=== PATIENT | female | born 1935 | race Caucasian/White ===

== ENCOUNTER 2017-11-11 15:33 | Inpatient (IN) | payer MEDICARE, MEDICAID ==
[~2017-11-11] VITALS: Ht 167.6 cm; Wt 85.4 kg
--- NOTE | 2017-11-11 15:48 | Emergency Room Report ---
History of Present Illness General Chief Complaint: Dyspnea/Respdistress Source: Patient, EMS Present Illness HPI 82-year-old female, history of CHF, A fibrillation, has a pacemaker, COPD, presenting from home with shortness of breath sob at rest and on exertion no cp, abd pain, nvd pt given 2 nitro by EMS and feels better Allergies: Coded Allergies: No Known Allergies (Verified , 12/03/08) Patient History Past Medical History: see triage record Past Surgical History: none Pertinent Family History: none Reviewed Nursing Documentation: PMH: Agreed, PSxH: Agreed Nursing Documentation-PMH Past Medical History: No History, Except For Hx Cardiac Problems: Yes - chf Hx Hypertension: Yes Hx Pacemaker: Yes Review of Systems All Other Systems: negative except mentioned in HPI Physical Exam Vital Signs Date Time Temp Pulse Resp B/P (MAP) Pulse Ox O2 Delivery O2 Flow Rate FiO2 11/11/17 15:29 94 20 176/70 100 Non-Rebreather 10.0 Sp02 EP Interpretation: reviewed, normal General Appearance: normal inspection, well appearing, no apparent distress, alert, GCS 15, non-toxic Head: normocephalic, atraumatic Eyes: bilateral eye normal inspection, bilateral eye PERRL, bilateral eye EOMI ENT: normal ENT inspection, normal pharynx, normal voice, moist mucus membranes Neck: normal inspection, full range of motion, supple Respiratory: respiratory distress, crackles, speaking full sentences Cardiovascular #1: other - PPM noted. , edema Cardiovascular #2: 2+ radial (R), 2+ radial (L) Gastrointestinal: normal inspection, non tender, soft, non-distended, no guarding Musculoskeletal: normal inspection, back normal, normal range of motion, non- tender Neurologic: normal inspection, alert, oriented x3, responsive, motor strength/ tone normal, sensory intact, speech normal Psychiatric: normal inspection, judgement/insight normal, memory normal Skin: normal inspection, normal color, no rash, warm/dry, well hydrated, normal turgor Medical Decision Making Diagnostic Impression: Primary Impression: Respiratory distress Additional Impression: CHF exacerbation ER Course 82-year-old female p/w SOB for 1 days. 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, O2 nasal cannula obtain basic labs including blood gas, troponin, BNP Nitro, lasix, Will consider BIPAP for persistent or worsening respiratory status Anticipate admission ER course: Patient hypoxic on room air, some mild respiratory distress, however still been able to converse with daughter at bedside 40 mg Lasix given Troponin elevated at likely secondary to CHF, patient not having any chest pain Disposition: Patient to be admitted to Tele D/w hospitalist Dr Shearer Please note that this Emergency Department Report was dictated using [employer] sales manager technology software, occasionally this can lead to erroneous entry secondary to interpretation by the dictation equipment. EKG Diagnostic Results EP Interpretation: Yes Rate: normal Rhythm: Paced rhythm ST Segments: Wide QRS, no sgarbossa criteria fulfilled ASA given to patient: no Rhythm Strip EP Interpretation: Yes Rate:70 Rhythm: Paced rhythm Chest X-ray CXR: Ordered: Yes 1 view Indication: SOB EP interpretation: Yes Interpretation: chf Impression: CHF Electronically signed by Merritt Dominguez MD Laboratory Tests Test 11/11/17 15:56 11/11/17 16:48 White Blood Count 8.1 K/UL (4.8-10.8) Red Blood Count 3.01 M/UL (4.20-5.40) L Hemoglobin 10.2 G/DL (12.0-16.0) L Hematocrit 28.8 % (37.0-47.0) L Mean Corpuscular Volume 96 FL (80-99) Mean Corpuscular Hemoglobin 33.8 PG (27.0-31.0) H Mean Corpuscular Hemoglobin Concent 35.3 G/DL (32.0-36.0) Red Cell Distribution Width 14.0 % (11.6-14.8) Platelet Count 158 K/UL (150-450) Mean Platelet Volume 8.8 FL (6.5-10.1) Neutrophils (%) (Auto) 74.2 % (45.0-75.0) Lymphocytes (%) (Auto) 13.9 % (20.0-45.0) L Monocytes (%) (Auto) 9.8 % (1.0-10.0) Eosinophils (%) (Auto) 1.5 % (0.0-3.0) Basophils (%) (Auto) 0.8 % (0.0-2.0) Sodium Level 142 MMOL/L (136-145) Potassium Level 3.6 MMOL/L (3.5-5.1) Chloride Level 104 MMOL/L (98-107) Carbon Dioxide Level 31 MMOL/L (21-32) Anion Gap 8 mmol/L (5-15) Blood Urea Nitrogen 47 mg/dL (7-18) H Creatinine 1.7 MG/DL (0.55-1.30) H Estimate Glomerular Filtration Rate mL/min (>60) Glucose Level 211 MG/DL (74-106) H Calcium Level 9.2 MG/DL (8.5-10.1) Total Bilirubin 0.5 MG/DL (0.2-1.0) Aspartate Amino Transferase (AST) 13 U/L (15-37) L Alanine Aminotransferase (ALT) 18 U/L (12-78) Alkaline Phosphatase 104 U/L (46-116) Troponin I 0.286 ng/mL (0.000-0.056) Pro-B-Type Natriuretic Peptide 1099 pg/mL (0-125) H Total Protein 7.3 G/DL (6.4-8.2) Albumin 2.8 G/DL (3.4-5.0) L Globulin 4.5 g/dL Albumin/Globulin Ratio 0.6 (1.0-2.7) L Urine Color Pale yellow Urine Appearance Clear Urine pH 6 (4.5-8.0) Urine Specific [place] 1.010 (1.005-1.035) Urine Protein Negative (NEGATIVE) Urine Glucose (UA) Negative (NEGATIVE) Urine Ketones Negative (NEGATIVE) Urine Occult Blood Negative (NEGATIVE) Urine Nitrite Negative (NEGATIVE) Urine Bilirubin Negative (NEGATIVE) Urine Urobilinogen Normal MG/DL (0.0-1.0) Urine Leukocyte Esterase Negative (NEGATIVE) Last Vital Signs Date Time Temp Pulse Resp B/P (MAP) Pulse Ox O2 Delivery O2 Flow Rate FiO2 11/11/17 15:29 94 20 176/70 100 Non-Rebreather 10.0 Disposition: ADMITTED INPATIENT Condition: Merritt Mueller M.D. Nov 11, 2017 15:48
[2017-11-11 16:28] LABS: BASOPHILS % (AUTO) 0.8 % (0.0-2.0); EOSINOPHILS % (AUTO) 1.5 % (0.0-3.0); HEMATOCRIT 28.8 % (37.0-47.0); HEMOGLOBIN 10.2 G/DL (12.0-16.0); LYMPHOCYTES % (AUTO) 13.9 % (20.0-45.0); MEAN CORPUSCULAR VOLUME 96 FL (80-99); MONOCYTES % (AUTO) 9.8 % (1.0-10.0); NEUTROPHILS % (AUTO) 74.2 % (45.0-75.0); PLATELET COUNT 158 K/UL (150-450); RED BLOOD COUNT 3.01 M/UL (4.20-5.40); WHITE BLOOD COUNT 8.1 K/UL (4.8-10.8)
[2017-11-11 16:33] LABS: ANION GAP 8 mmol/L (5-15); BLOOD UREA NITROGEN 47 mg/dL (7-18); CALCIUM 9.2 MG/DL (8.5-10.1); CARBON DIOXIDE 31 MMOL/L (21-32); CHLORIDE 104 MMOL/L (98-107); CREATININE 1.7 MG/DL (0.55-1.30); POTASSIUM 3.6 MMOL/L (3.5-5.1); SODIUM 142 MMOL/L (136-145)
--- NOTE | 2017-11-11 16:41 | Diagnostic Imaging Report ---
Indication: Shortness of breath Technique: One view of the chest Comparison: 01/26/2011 Findings: There is a left chest bifocal pacemaker. The heart is enlarged. There is mild interstitial congestion. No focal airspace consolidation. No effusions Impression: Cardiomegaly. Mild interstitial edema
[2017-11-11 16:44] LABS: ALANINE AMINOTRANSFERASE 18 U/L (12-78); ALBUMIN 2.8 G/DL (3.4-5.0); ALBUMIN/GLOBULIN RATIO 0.6 (1.0-2.7); ALKALINE PHOSPHATASE 104 U/L (46-116); ASPARTATE AMINO TRANSFERASE 13 U/L (15-37); BILIRUBIN,TOTAL 0.5 MG/DL (0.2-1.0)
[2017-11-11 17:19] LABS: APPEARANCE,URINE CLEAR; BILIRUBIN, URINE NEGATIVE (NEGATIVE); COLOR,URINE PALE YELLOW; GLUCOSE, URINE (UA) NEGATIVE (NEGATIVE); KETONES,URINE NEGATIVE (NEGATIVE); LEUKOCYTE ESTERASE ,URINE NEGATIVE (NEGATIVE); NITRITE,URINE NEGATIVE (NEGATIVE); PH,URINE 6 (4.5-8.0); PROTEIN,URINE NEGATIVE (NEGATIVE); UROBILINOGEN,URINE NORMAL MG/DL (0.0-1.0)
--- NOTE | 2017-11-11 18:47 | Cardiology Progress Note ---
Subjective Subjective The patient is known to me with chf Objective Last 24 Hour Vital Signs Date Time Temp Pulse Resp B/P (MAP) Pulse Ox O2 Delivery O2 Flow Rate FiO2 11/11/17 16:00 94 20 Room Air 10.0 11/11/17 15:29 94 20 176/70 100 Non-Rebreather 10.0 Laboratory Tests Test 11/11/17 15:56 11/11/17 16:48 White Blood Count 8.1 K/UL (4.8-10.8) Red Blood Count 3.01 M/UL (4.20-5.40) L Hemoglobin 10.2 G/DL (12.0-16.0) L Hematocrit 28.8 % (37.0-47.0) L Mean Corpuscular Volume 96 FL (80-99) Mean Corpuscular Hemoglobin 33.8 PG (27.0-31.0) H Mean Corpuscular Hemoglobin Concent 35.3 G/DL (32.0-36.0) Red Cell Distribution Width 14.0 % (11.6-14.8) Platelet Count 158 K/UL (150-450) Mean Platelet Volume 8.8 FL (6.5-10.1) Neutrophils (%) (Auto) 74.2 % (45.0-75.0) Lymphocytes (%) (Auto) 13.9 % (20.0-45.0) L Monocytes (%) (Auto) 9.8 % (1.0-10.0) Eosinophils (%) (Auto) 1.5 % (0.0-3.0) Basophils (%) (Auto) 0.8 % (0.0-2.0) Sodium Level 142 MMOL/L (136-145) Potassium Level 3.6 MMOL/L (3.5-5.1) Chloride Level 104 MMOL/L (98-107) Carbon Dioxide Level 31 MMOL/L (21-32) Anion Gap 8 mmol/L (5-15) Blood Urea Nitrogen 47 mg/dL (7-18) H Creatinine 1.7 MG/DL (0.55-1.30) H Estimat Glomerular Filtration Rate mL/min (>60) Glucose Level 211 MG/DL (74-106) H Calcium Level 9.2 MG/DL (8.5-10.1) Total Bilirubin 0.5 MG/DL (0.2-1.0) Aspartate Amino Transf (AST/SGOT) 13 U/L (15-37) L Alanine Aminotransferase (ALT/SGPT) 18 U/L (12-78) Alkaline Phosphatase 104 U/L (46-116) Troponin I 0.286 ng/mL (0.000-0.056) Pro-B-Type Natriuretic Peptide 1099 pg/mL (0-125) H Total Protein 7.3 G/DL (6.4-8.2) Albumin 2.8 G/DL (3.4-5.0) L Globulin 4.5 g/dL Albumin/Globulin Ratio 0.6 (1.0-2.7) L Urine Color Pale yellow Urine Appearance Clear Urine pH 6 (4.5-8.0) Urine Specific [place] 1.010 (1.005-1.035) Urine Protein Negative (NEGATIVE) Urine Glucose (UA) Negative (NEGATIVE) Urine Ketones Negative (NEGATIVE) Urine Occult Blood Negative (NEGATIVE) Urine Nitrite Negative (NEGATIVE) Urine Bilirubin Negative (NEGATIVE) Urine Urobilinogen Normal MG/DL (0.0-1.0) Urine Leukocyte Esterase Negative (NEGATIVE) BRITTANY SEAY Nov 11, 2017 18:47
[2017-11-11 19:53] VITALS: BP 160/71
[2017-11-11 21:20] VITALS: BP 152/54
--- NOTE | 2017-11-11 21:54 | Cardiology Progress Note ---
Subjective Subjective [id number] Objective Last 24 Hour Vital Signs Date Time Temp Pulse Resp B/P (MAP) Pulse Ox O2 Delivery O2 Flow Rate FiO2 11/11/17 19:54 98.0 70 20 160/71 100 Nasal Cannula 4.0 98.0 11/11/17 19:53 98.0 70 20 160/71 100 Nasal Cannula 4.0 98.0 11/11/17 16:00 94 20 Room Air 10.0 11/11/17 15:29 94 20 176/70 100 Non-Rebreather 10.0 Laboratory Tests Test 11/11/17 15:56 11/11/17 16:48 11/11/17 21:33 White Blood Count 8.1 K/UL (4.8-10.8) Red Blood Count 3.01 M/UL (4.20-5.40) L Hemoglobin 10.2 G/DL (12.0-16.0) L Hematocrit 28.8 % (37.0-47.0) L Mean Corpuscular Volume 96 FL (80-99) Mean Corpuscular Hemoglobin 33.8 PG (27.0-31.0) H Mean Corpuscular Hemoglobin Concent 35.3 G/DL (32.0-36.0) Red Cell Distribution Width 14.0 % (11.6-14.8) Platelet Count 158 K/UL (150-450) Mean Platelet Volume 8.8 FL (6.5-10.1) Neutrophils (%) (Auto) 74.2 % (45.0-75.0) Lymphocytes (%) (Auto) 13.9 % (20.0-45.0) L Monocytes (%) (Auto) 9.8 % (1.0-10.0) Eosinophils (%) (Auto) 1.5 % (0.0-3.0) Basophils (%) (Auto) 0.8 % (0.0-2.0) Sodium Level 142 MMOL/L (136-145) Potassium Level 3.6 MMOL/L (3.5-5.1) Chloride Level 104 MMOL/L (98-107) Carbon Dioxide Level 31 MMOL/L (21-32) Anion Gap 8 mmol/L (5-15) Blood Urea Nitrogen 47 mg/dL (7-18) H Creatinine 1.7 MG/DL (0.55-1.30) H Estimat Glomerular Filtration Rate mL/min (>60) Glucose Level 211 MG/DL (74-106) H Calcium Level 9.2 MG/DL (8.5-10.1) Total Bilirubin 0.5 MG/DL (0.2-1.0) Aspartate Amino Transf (AST/SGOT) 13 U/L (15-37) L Alanine Aminotransferase (ALT/SGPT) 18 U/L (12-78) Alkaline Phosphatase 104 U/L (46-116) Troponin I 0.286 ng/mL (0.000-0.056) Pro-B-Type Natriuretic Peptide 1099 pg/mL (0-125) H Total Protein 7.3 G/DL (6.4-8.2) Albumin 2.8 G/DL (3.4-5.0) L Globulin 4.5 g/dL Albumin/Globulin Ratio 0.6 (1.0-2.7) L Urine Color Pale yellow Urine Appearance Clear Urine pH 6 (4.5-8.0) Urine Specific [place] 1.010 (1.005-1.035) Urine Protein Negative (NEGATIVE) Urine Glucose (UA) Negative (NEGATIVE) Urine Ketones Negative (NEGATIVE) Urine Occult Blood Negative (NEGATIVE) Urine Nitrite Negative (NEGATIVE) Urine Bilirubin Negative (NEGATIVE) Urine Urobilinogen Normal MG/DL (0.0-1.0) Urine Leukocyte Esterase Negative (NEGATIVE) Prothrombin Time Pending Prothromb Time International Ratio Pending BRITTANY SEAY Nov 11, 2017 21:54
[2017-11-11] MEDS ORDERED: Warfarin Sodium 2.5mg ORAL SCH (23:00)
--- NOTE | 2017-11-11 23:00 | History and Physical Report ---
DATE OF ADMISSION: 11/11/2017 IDENTIFICATION: This is an 82-year-old female. REASON FOR EVALUATION: Congestive heart failure. HISTORY OF PRESENT ILLNESS: Taken from discussion with the daughter. The patient is well known to me. However she is demented and she also has very poor hearing now. According to the daughter had atrial fibrillation and the rate was elevated but then she converted back to paced rhythm and for last thee days she was breathing really hard and saturation was dropping to 86% so the daughter decided to bring her in. PAST MEDICAL HISTORY: Congestive heart failure with diastolic dysfunction, paroxysmal atrial fibrillation. She has a pacemaker in situ. She also has history of hemorrhagic stroke when she was 42-year-old and then she had history of ischemic stroke when she was 72-year-old and since that time she was anticoagulated with Coumadin. The patient also has severe hypertension, diabetes, dementia recurring urinary tract infection, and anemia. PAST SURGICAL HISTORY: Pacemaker. ALLERGIES: None. MEDICATIONS: Unfortunately I do not have full list of her medications and we will try to obtain it but she is on amiodarone, she is on warfarin, she is on digoxin, metoprolol, telmisartan with hydrochlorothiazide and amlodipine, also she is on Dilantin because of her history of stroke and she also is on insulin. REVIEW OF SYSTEMS: Significant for very poor hearing, decreased vision, poor memory. Recently she is eating only pureed diet because she lost the ability to chew. She chew but then she does not swallow. Her daughter contributes that to dementia. The patient has gait instability and now she walks only few steps from the bed to the restroom and back. She is partially incontinent. She denies any abdominal pain. There is no chest pain but there is orthopnea. There is no wheezing. There is no cough production. No fever. No melena. No diarrhea. No dysuria. PHYSICAL EXAMINATION: GENERAL: This is elderly female, who is resting in bed and her daughter at the bedside. She has evidence of tachypnea and mild respiratory distress. VITAL SIGNS: Her blood pressure in the emergency department was 170/70, her heart rate was 94, and temperature was 98 orally, and oxygen saturation was 100% on three liters to four liters nasal cannula. HEENT: PERRLA. EOMI. NECK: Supple. Jugular venous pressure is 10 cm. Carotid upstroke is brisk. She has no bruit. LUNGS: Scattered crackles. HEART: Regular. There is a systolic ejection murmur on aorta 2/6 and there is accentuated A2. ABDOMEN: Soft, distended. No tenderness. No rebound. No guarding. EXTREMITIES: Lower extremity no edema. Distal pulses palpable. Sacral area free of any ulcers. NEUROLOGICAL: She has weakness on the left side. LABORATORY AND DIAGNOSTIC DATA: Chest x-ray, mild congestive heart failure. EKG AV pacing. White count 8.1, hemoglobin 10.2, platelets 158. Creatinine 1.7. BUN 47. Troponin 0.286. ProBNP 1099. Total protein 7.3 and albumin 2.8. INR not done yet. Urinalysis was done and is unremarkable. IMPRESSION AND RECOMMENDATION: 1. Congestive heart failure, acute on chronic, diastolic. 2. Atrial fibrillation paroxysmal. 3. 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 4. Pacemaker in situ. 5. Anticoagulation with Coumadin. 6. Severe hypertensive heart disease. PLAN: 1. Continue beta lisette, diuresis. 2. Blood pressure control. 3. Blood sugar control. 4. Monitor laboratories daily and we will arrange for pacemaker interrogation. Thank you very much. Lillian Charlton M.D. DR: Preston JOB#: [id number] CC:
[2017-11-11] MEDS: Phenytoin 100mg cap ORAL SCH (23:27)
[2017-11-11] MEDS: Irbesartan 150mg tablet ORAL SCH (23:39)
[2017-11-12] VITALS: BP 145/65
[2017-11-12 04:00] VITALS: BP 163/74
[2017-11-12] MEDS: Levothyroxine 25mcg tab ORAL SCH (06:24)
[2017-11-12 08:00] VITALS: BP 132/55
[2017-11-12] MEDS: Irbesartan 150mg tablet ORAL SCH ×2 (08:55→18:14)
[2017-11-12] MEDS: Phenytoin 100mg cap ORAL SCH ×3 (08:57→21:19)
[2017-11-12] MEDS: Metoprolol Succinate XL 100mg tab ORAL SCH (08:58)
[2017-11-12] MEDS ORDERED: Amiodarone 200mg tab ORAL ONE ×2 (09:00)
--- NOTE | 2017-11-12 11:07 | Cardiology Progress Note ---
Assessment/Plan Assessment/Plan 1. Congestive heart failure, acute on chronic, diastolic. 2. Atrial fibrillation paroxysmal. 3. 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 4. Pacemaker in situ. 5. Anticoagulation with Coumadin. 6. Severe hypertensive heart disease bp is stalb econtienu diuretic is on irbesartanda nprocdardia and metoprolo daily iv lasix lula data reviwed last echo 12/2016 ef 48 % gobal hypokinesis need labs daily for 2-3 day tele persoanlly reviewed av seq opacign Subjective Cardiovascular: Denies: chest pain, lightheadedness Respiratory: Denies: shortness of breath Gastrointestinal/Abdominal: Denies: abdominal pain Genitourinary: Denies: burning Objective Last 24 Hour Vital Signs Date Time Temp Pulse Resp B/P (MAP) Pulse Ox O2 Delivery O2 Flow Rate FiO2 11/12/17 09:06 70 132/55 11/12/17 08:58 70 132/55 11/12/17 08:55 137/55 11/12/17 04:00 70 11/12/17 04:00 98.1 70 20 163/74 96 Nasal Cannula 4.0 98.1 11/12/17 00:00 70 11/12/17 00:00 99.5 69 20 145/65 96 Nasal Cannula 4.0 99.5 11/11/17 23:39 152/54 11/11/17 21:51 71 11/11/17 21:20 98.1 67 20 152/54 90 Nasal Cannula 4.0 98.1 11/11/17 19:54 98.0 70 20 160/71 100 Nasal Cannula 4.0 98.0 11/11/17 19:53 98.0 70 20 160/71 100 Nasal Cannula 4.0 98.0 11/11/17 16:00 94 20 Room Air 10.0 11/11/17 15:29 94 20 176/70 100 Non-Rebreather 10.0 General Appearance: alert Neck: no JVD Cardiovascular: normal rate, regular rhythm Respiratory/Chest: crackles/rales Abdomen: normal bowel sounds, non tender, soft Extremities: no swelling Intake and Output 11/11/17 11/12/17 19:00 07:00 Intake Total 0 ml Output Total 300 ml Balance 0 ml -300 ml Intake Oral 0 ml Output Urine Total 300 ml # Bowel Movements 1 Laboratory Tests Test 11/11/17 15:56 11/11/17 16:48 11/11/17 21:33 11/12/17 10:35 White Blood Count 8.1 K/UL (4.8-10.8) Red Blood Count 3.01 M/UL (4.20-5.40) L Hemoglobin 10.2 G/DL (12.0-16.0) L Hematocrit 28.8 % (37.0-47.0) L Mean Corpuscular Volume 96 FL (80-99) Mean Corpuscular Hemoglobin 33.8 PG (27.0-31.0) H Mean Corpuscular Hemoglobin Concent 35.3 G/DL (32.0-36.0) Red Cell Distribution Width 14.0 % (11.6-14.8) Platelet Count 158 K/UL (150-450) Mean Platelet Volume 8.8 FL (6.5-10.1) Neutrophils (%) (Auto) 74.2 % (45.0-75.0) Lymphocytes (%) (Auto) 13.9 % (20.0-45.0) L Monocytes (%) (Auto) 9.8 % (1.0-10.0) Eosinophils (%) (Auto) 1.5 % (0.0-3.0) Basophils (%) (Auto) 0.8 % (0.0-2.0) Sodium Level 142 MMOL/L (136-145) Potassium Level 3.6 MMOL/L (3.5-5.1) Chloride Level 104 MMOL/L (98-107) Carbon Dioxide Level 31 MMOL/L (21-32) Anion Gap 8 mmol/L (5-15) Blood Urea Nitrogen 47 mg/dL (7-18) H Creatinine 1.7 MG/DL (0.55-1.30) H Estimat Glomerular Filtration Rate mL/min (>60) Glucose Level 211 MG/DL (74-106) H Calcium Level 9.2 MG/DL (8.5-10.1) Total Bilirubin 0.5 MG/DL (0.2-1.0) Aspartate Amino Transf (AST/SGOT) 13 U/L (15-37) L Alanine Aminotransferase (ALT/SGPT) 18 U/L (12-78) Alkaline Phosphatase 104 U/L (46-116) Troponin I 0.286 ng/mL (0.000-0.056) Pro-B-Type Natriuretic Peptide 1099 pg/mL (0-125) H Total Protein 7.3 G/DL (6.4-8.2) Albumin 2.8 G/DL (3.4-5.0) L Globulin 4.5 g/dL Albumin/Globulin Ratio 0.6 (1.0-2.7) L Urine Color Pale yellow Urine Appearance Clear Urine pH 6 (4.5-8.0) Urine Specific [place] 1.010 (1.005-1.035) Urine Protein Negative (NEGATIVE) Urine Glucose (UA) Negative (NEGATIVE) Urine Ketones Negative (NEGATIVE) Urine Occult Blood Negative (NEGATIVE) Urine Nitrite Negative (NEGATIVE) Urine Bilirubin Negative (NEGATIVE) Urine Urobilinogen Normal MG/DL (0.0-1.0) Urine Leukocyte Esterase Negative (NEGATIVE) Prothrombin Time 20.7 SEC (9.30-11.50) H Prothromb Time International Ratio 2.0 (0.9-1.1) H Thyroid Stimulating Hormone (TSH) Pending Phenytoin (Dilantin) Level Pending CHRISTIANO MURPHY Nov 12, 2017 11:07
[2017-11-12 11:28] LABS: INR 1.7 (0.9-1.1)
[2017-11-12 12:00] VITALS: BP 141/68
[2017-11-12] MEDS: Enoxaparin 80mg Inj SUBQ SCH (15:42)
[2017-11-12 16:00] VITALS: BP 143/69
--- NOTE | 2017-11-12 16:29 | Cardiology Report ---
APPROVED REPORT EKG Measurement Heart [id number] FL 204P [id number] av sequential pacing
[2017-11-12] MEDS ORDERED: Warfarin Sodium 5mg ORAL ONE (17:00)
[2017-11-12 20:00] VITALS: BP 137/71
[2017-11-12] MEDS: Levemir Flexpen SUBQ SCH (21:21)
[2017-11-13] VITALS (7 sets, daily range): BP systolic 128–165; BP diastolic 66–82
[2017-11-13] MEDS: Levothyroxine 25mcg tab ORAL SCH (06:00)
[2017-11-13] MEDS: Phenytoin 100mg cap ORAL SCH ×2 (08:18→20:59)
[2017-11-13] MEDS: Metoprolol Succinate XL 100mg tab ORAL SCH (08:20)
[2017-11-13] MEDS: Irbesartan 150mg tablet ORAL SCH ×2 (08:21→17:17)
[2017-11-13 08:36] LABS: INR 1.6 (0.9-1.1)
[2017-11-13] MEDS: Enoxaparin 80mg Inj SUBQ SCH (13:36)
[2017-11-13] MEDS ORDERED: Warfarin Sodium 5mg ORAL ONE (17:00)
--- NOTE | 2017-11-13 19:15 | Cardiology Progress Note ---
Assessment/Plan Assessment/Plan 1. Congestive heart failure, acute on chronic, diastolic. 2. Atrial fibrillation paroxysmal. 3. 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 4. Pacemaker in situ. 5. Anticoagulation with Coumadin. 6. Severe hypertensive heart disease bp is stable continue diuretic is on irbesartan and Procardia and metoprolol daily iv lasix last echo 12/2016 ef 48 % gobal hypokinesis no lab done tele personally reviewed av seq pacing seem drowsy hodl tomorrow lasix until lab available Subjective ROS Limited/Unobtainable: Yes Objective Last 24 Hour Vital Signs Date Time Temp Pulse Resp B/P (MAP) Pulse Ox O2 Delivery O2 Flow Rate FiO2 11/13/17 17:17 140/70 11/13/17 16:00 97.0 84 20 140/70 97 Room Air 97.0 11/13/17 16:00 70 11/13/17 12:00 97.0 69 18 140/67 96 Room Air 97.0 11/13/17 12:00 70 11/13/17 08:21 70 148/62 11/13/17 08:21 148/62 11/13/17 08:20 70 148/62 11/13/17 08:00 97.1 70 20 155/66 96 Room Air 97.1 11/13/17 08:00 70 11/13/17 04:00 98.1 70 18 165/69 93 Room Air 98.1 11/13/17 04:00 70 11/13/17 00:00 70 11/13/17 00:00 97.2 70 20 164/71 96 Nasal Cannula 3.0 97.2 11/12/17 20:00 70 11/12/17 20:00 99.0 70 18 137/71 95 99.0 11/12/17 20:00 99.0 70 18 137/71 95 Nasal Cannula 3.0 99.0 General Appearance: no apparent distress, other - DROWSEY Cardiovascular: normal rate, regular rhythm Respiratory/Chest: lungs clear Abdomen: normal bowel sounds, non tender, soft Extremities: moderate edema Intake and Output 11/12/17 11/13/17 19:00 07:00 Intake Total 352 ml Output Total 800 ml Balance 352 ml -800 ml Intake Oral 352 ml Output Urine Total 800 ml # Voids 2 Laboratory Tests Test 11/13/17 06:34 Prothrombin Time 16.3 SEC (9.30-11.50) H Prothromb Time International Ratio 1.6 (0.9-1.1) H CHRISTIANO MURPHY Nov 13, 2017 19:15
[2017-11-13] MEDS: Levemir Flexpen SUBQ SCH (20:59)
[2017-11-14] VITALS: BP 156/82
[2017-11-14 04:00] VITALS: BP 150/79
[2017-11-14] MEDS: Levothyroxine 25mcg tab ORAL SCH (06:21)
[2017-11-14 08:00] VITALS: BP 146/78
[2017-11-14 08:43] LABS: BASOPHILS % (AUTO) 1.2 % (0.0-2.0); EOSINOPHILS % (AUTO) 2.4 % (0.0-3.0); HEMOGLOBIN 10.1 G/DL (12.0-16.0); LYMPHOCYTES % (AUTO) 11.9 % (20.0-45.0); MEAN CORPUSCULAR VOLUME 96 FL (80-99); MONOCYTES % (AUTO) 10.3 % (1.0-10.0); NEUTROPHILS % (AUTO) 74.2 % (45.0-75.0); PLATELET COUNT 179 K/UL (150-450); RED BLOOD COUNT 3.11 M/UL (4.20-5.40); RED CELL DISTRIBUTION WIDTH 13.1 % (11.6-14.8); WHITE BLOOD COUNT 6.7 K/UL (4.8-10.8)
[2017-11-14 08:57] LABS: INR 1.5 (0.9-1.1)
[2017-11-14 09:16] LABS: ANION GAP 6 mmol/L (5-15); BLOOD UREA NITROGEN 35 mg/dL (7-18); CALCIUM 9.1 MG/DL (8.5-10.1); CARBON DIOXIDE 30 MMOL/L (21-32); CHLORIDE 109 MMOL/L (98-107); CREATININE 1.4 MG/DL (0.55-1.30); POTASSIUM 3.3 MMOL/L (3.5-5.1); SODIUM 145 MMOL/L (136-145)
[2017-11-14] MEDS: Phenytoin 100mg cap ORAL SCH ×2 (09:18→21:40)
[2017-11-14] MEDS: Metoprolol Succinate XL 100mg tab ORAL SCH (09:20)
[2017-11-14] MEDS: Irbesartan 150mg tablet ORAL SCH ×2 (09:21→18:04)
[2017-11-14] MEDS ORDERED: Enoxaparin 80mg Inj SUBQ SCH (10:00)
[2017-11-14 12:00] VITALS: BP 149/68
[2017-11-14 16:00] VITALS: BP 109/51
[2017-11-14] MEDS ORDERED: Warfarin Sodium 7.5mg ORAL ONE (17:00)
--- NOTE | 2017-11-14 17:17 | Cardiology Progress Note ---
Assessment/Plan Assessment/Plan congestive ehart failure, acute, diastolic continue diuresism increase lasix to 40 mg IVP twice a day repeat CXR and BNP to monitor improvement in heart failure Paroxysmal a fib, on amiodarone, antiocagulated with coumadine, at rpesent time , she is subtherapeutic but she is not in a fib, will hold Lovenox with the potential risk of bleeding continue to adjust coumadin dose to keep INR 2.0-2.5 restart Amiodarone Low K, will replace Mg was normal her Hb A1C is pending will attempt to get her OOB Subjective Subjective the patient is resting in bed, confused also has poor hearing daughter is at the bedside Objective Last 24 Hour Vital Signs Date Time Temp Pulse Resp B/P (MAP) Pulse Ox O2 Delivery O2 Flow Rate FiO2 11/14/17 12:00 97.9 70 18 149/68 99 Nasal Cannula 3.0 97.9 11/14/17 12:00 70 11/14/17 09:21 70 146/78 11/14/17 09:21 146/78 11/14/17 09:20 70 146/78 11/14/17 08:00 70 11/14/17 08:00 96.3 70 18 146/78 96 Nasal Cannula 3.0 96.3 11/14/17 04:00 70 11/14/17 04:00 97.3 70 21 150/79 98 Room Air 97.3 11/14/17 00:00 98.1 70 21 156/82 98 Room Air 98.1 11/14/17 00:00 70 11/13/17 20:00 70 11/13/17 20:00 97.7 71 22 157/82 97 Room Air 97.7 11/13/17 17:17 140/70 General Appearance: mild distress EENT: PERRL/EOMI Neck: JVD Rhythm: other - paced rhythm Cardiovascular: normal rate Respiratory/Chest: crackles/rales Abdomen: soft Extremities: trace edema Intake and Output 11/13/17 11/14/17 19:00 07:00 Intake Total 352 ml Output Total 900 ml Balance -548 ml Intake Oral 352 ml Output Urine Total 900 ml # Voids 1 Laboratory Tests Test 11/14/17 06:33 White Blood Count 6.7 K/UL (4.8-10.8) Red Blood Count 3.11 M/UL (4.20-5.40) L Hemoglobin 10.1 G/DL (12.0-16.0) L Hematocrit 30.0 % (37.0-47.0) L Mean Corpuscular Volume 96 FL (80-99) Mean Corpuscular Hemoglobin 32.5 PG (27.0-31.0) H Mean Corpuscular Hemoglobin Concent 33.7 G/DL (32.0-36.0) Red Cell Distribution Width 13.1 % (11.6-14.8) Platelet Count 179 K/UL (150-450) Mean Platelet Volume 8.2 FL (6.5-10.1) Neutrophils (%) (Auto) 74.2 % (45.0-75.0) Lymphocytes (%) (Auto) 11.9 % (20.0-45.0) L Monocytes (%) (Auto) 10.3 % (1.0-10.0) H Eosinophils (%) (Auto) 2.4 % (0.0-3.0) Basophils (%) (Auto) 1.2 % (0.0-2.0) Prothrombin Time 15.4 SEC (9.30-11.50) H Prothromb Time International Ratio 1.5 (0.9-1.1) H Sodium Level 145 MMOL/L (136-145) Potassium Level 3.3 MMOL/L (3.5-5.1) L Chloride Level 109 MMOL/L (98-107) H Carbon Dioxide Level 30 MMOL/L (21-32) Anion Gap 6 mmol/L (5-15) Blood Urea Nitrogen 35 mg/dL (7-18) H Creatinine 1.4 MG/DL (0.55-1.30) H Estimat Glomerular Filtration Rate mL/min (>60) Glucose Level 102 MG/DL (74-106) Calcium Level 9.1 MG/DL (8.5-10.1) Magnesium Level 2.0 MG/DL (1.8-2.4) Pro-B-Type Natriuretic Peptide 1158 pg/mL (0-125) H BRITTANY SEAY Nov 14, 2017 17:17
[2017-11-14] MEDS: Amiodarone 200mg tab ORAL SCH (18:04)
[2017-11-14 20:00] VITALS: BP 150/83
[2017-11-14] MEDS: Levemir Flexpen SUBQ SCH (21:41)
[2017-11-15] VITALS: BP 141/84
[2017-11-15 04:00] VITALS: BP 150/82
[2017-11-15] MEDS: Levothyroxine 25mcg tab ORAL SCH (05:46)
[2017-11-15 07:40] LABS: ANION GAP 9 mmol/L (5-15); BLOOD UREA NITROGEN 39 mg/dL (7-18); CALCIUM 9.2 MG/DL (8.5-10.1); CARBON DIOXIDE 29 MMOL/L (21-32); CHLORIDE 106 MMOL/L (98-107); CREATININE 1.6 MG/DL (0.55-1.30); POTASSIUM 3.3 MMOL/L (3.5-5.1); SODIUM 144 MMOL/L (136-145)
[2017-11-15 08:00] VITALS: BP 133/77
[2017-11-15 08:19] LABS: INR 1.7 (0.9-1.1)
[2017-11-15] MEDS: Phenytoin 100mg cap ORAL SCH ×2 (09:00→23:23)
[2017-11-15] MEDS: Metoprolol Succinate XL 100mg tab ORAL SCH (09:00)
[2017-11-15] MEDS: Irbesartan 150mg tablet ORAL SCH ×2 (09:00→18:17)
[2017-11-15] MEDS: Amiodarone 200mg tab ORAL SCH (09:00)
--- NOTE | 2017-11-15 11:08 | Diagnostic Imaging Report ---
Indication: Shortness of breath Technique: One view of the chest Comparison: 11/11/2017 Findings: Left chest bifocal pacemaker is again demonstrated. Mild interstitial congestion persists. The heart remains borderline enlarged. Pleural spaces remain clear. No focal airspace consolidation. Impression: Unchanged, over 4 days, findings as above.
[2017-11-15 12:00] VITALS: BP_SYST 129; BP_SYST 148; BP_DIAS 79; BP_DIAS 87
[2017-11-15 16:00] VITALS: BP 121/75
--- NOTE | 2017-11-15 16:04 | Anethesia Preoperative Eval ---
Anesthesia Pre-op PMH/ROS General Date of Evaluation: Nov 15, 2017 Time of Evaluation: 16:30 Anesthesiologist: CROW ASA Score: ASA 3 Mallampati Score Class I : Soft palate, uvula, fauces, pillars visible Class II: Soft palate, uvula, fauces visible Class III: Soft palate, base of uvula visible Class IV: Only hard plate visible Mallampati Classification: Class II Surgeon: mami Diagnosis: CHF Surgical Procedure: Pacemaker Anesthesia History: none Family History: no anesthesia problems Allergies: Coded Allergies: No Known Allergies (Verified , 12/03/08) Medications: see eMAR Anesthesia Pre-op Phys. Exam Physician Exam Last Vital Signs Date Time Temp Pulse Resp B/P (MAP) Pulse Ox O2 Delivery O2 Flow Rate FiO2 11/15/17 12:00 97.9 100 19 129/79 96 Nasal Cannula 3.0 97.9 Constitutional: NAD Neurologic: CN 2-12 intact Cardiovascular: RRR Respiratory: CTA Gastrointestinal: S/NT/ND Airway Exam Mallampati Score: Class II MO: full ROM: full Teeth: intact Anesthesia Pre-op A/P Labs Coagulation Test 11/15/17 06:15 Prothrombin Time 17.4 SEC (9.30-11.50) H Prothromb Time International Ratio 1.7 (0.9-1.1) H Chemistry Test 11/15/17 06:15 Sodium Level 144 MMOL/L (136-145) Potassium Level 3.3 MMOL/L (3.5-5.1) L Chloride Level 106 MMOL/L (98-107) Carbon Dioxide Level 29 MMOL/L (21-32) Anion Gap 9 mmol/L (5-15) Blood Urea Nitrogen 39 mg/dL (7-18) H Creatinine 1.6 MG/DL (0.55-1.30) H Estimat Glomerular Filtration Rate mL/min (>60) Glucose Level 122 MG/DL (74-106) H Calcium Level 9.2 MG/DL (8.5-10.1) Risk Assessment & Plan Plan: GA Status Change Before Surgery: No Pre-Antibiotics Given Within 1 Hr of Incision: Zak Vazquez M.D. Nov 15, 2017 16:04
[2017-11-15] MEDS ORDERED: Warfarin Sodium 4mg PO ONE (17:00)
--- NOTE | 2017-11-15 19:04 | Cardiology Progress Note ---
Assessment/Plan Assessment/Plan congestive heart failure, acute, clinically improved, diastolic continue diuretics, change lasix to 40 mg IVP once a day Paroxysmal a fib, on amiodarone, antiocagulated with coumadine, at present time , she is off Coumadin because of generator change, will monitor INR daily restart Amiodarone Low K, will replace, monitor K daily Mg was normal her Hb A1C is pending will attempt to get her OOB constipation, will give suppository and laxatives pacemaker interrogation done, close to DENISE, will replace Saturday now is a fib, will give double dose of amiodarone Subjective Subjective the patient is resting in bed, confused also has poor hearing daughter is at the bedside Objective Last 24 Hour Vital Signs Date Time Temp Pulse Resp B/P (MAP) Pulse Ox O2 Delivery O2 Flow Rate FiO2 11/15/17 18:17 121/75 11/15/17 16:00 112 11/15/17 16:00 97.8 93 19 121/75 97 Nasal Cannula 3.0 97.8 11/15/17 12:00 97.9 100 19 129/79 96 Nasal Cannula 3.0 97.9 11/15/17 12:00 106 11/15/17 09:00 111 133/77 11/15/17 09:00 111 133/77 11/15/17 09:00 133/77 11/15/17 08:00 107 11/15/17 08:00 97.9 111 20 133/77 99 Nasal Cannula 3.0 97.9 11/15/17 04:00 106 11/15/17 04:00 96.1 105 20 150/82 96 Nasal Cannula 3.0 96.1 11/15/17 00:00 107 11/15/17 00:00 96.1 100 20 141/84 89 Nasal Cannula 3.0 96.1 11/14/17 20:00 99.5 104 20 150/83 89 Nasal Cannula 3.0 99.5 11/14/17 20:00 103 General Appearance: alert, other - confused EENT: PERRL/EOMI Neck: JVD Rhythm: Afib Cardiovascular: tachycardia Respiratory/Chest: crackles/rales Abdomen: non tender Extremities: non-tender Neurologic: alert Intake and Output 11/14/17 11/15/17 19:00 07:00 Intake Total 200 ml Output Total 1000 ml Balance 200 ml -1000 ml Intake Oral 200 ml Output Urine Total 1000 ml # Voids 2 11 Laboratory Tests Test 11/15/17 06:15 Prothrombin Time 17.4 SEC (9.30-11.50) H Prothromb Time International Ratio 1.7 (0.9-1.1) H Sodium Level 144 MMOL/L (136-145) Potassium Level 3.3 MMOL/L (3.5-5.1) L Chloride Level 106 MMOL/L (98-107) Carbon Dioxide Level 29 MMOL/L (21-32) Anion Gap 9 mmol/L (5-15) Blood Urea Nitrogen 39 mg/dL (7-18) H Creatinine 1.6 MG/DL (0.55-1.30) H Estimat Glomerular Filtration Rate mL/min (>60) Glucose Level 122 MG/DL (74-106) H Calcium Level 9.2 MG/DL (8.5-10.1) BRITTANY SEAY Nov 15, 2017 19:04
[2017-11-15 20:00] VITALS: BP 133/81
[2017-11-15] MEDS: Lactulose 20gm/30ml UDC ORAL SCH (23:22)
[2017-11-15] MEDS: Levemir Flexpen SUBQ SCH (23:31)
[2017-11-16] VITALS: BP 124/79
[2017-11-16 04:00] VITALS: BP 130/71
[2017-11-16] MEDS: Levothyroxine 25mcg tab ORAL SCH (06:48)
[2017-11-16] MEDS: Irbesartan 150mg tablet ORAL SCH ×2 (08:28→17:25)
[2017-11-16] MEDS: Lactulose 20gm/30ml UDC ORAL SCH ×3 (08:29→17:25)
[2017-11-16] MEDS: Metoprolol Succinate XL 100mg tab ORAL SCH (08:30)
[2017-11-16] MEDS: Phenytoin 100mg cap ORAL SCH ×2 (08:30→21:07)
[2017-11-16 08:31] LABS: INR 1.5 (0.9-1.1)
[2017-11-16 08:48] VITALS: BP 134/72
[2017-11-16] MEDS ORDERED: Amiodarone 200mg tab ORAL SCH (09:00)
[2017-11-16 12:00] VITALS: BP 127/79
--- NOTE | 2017-11-16 14:37 | Cardiology Progress Note ---
Assessment/Plan Status: stable, progressing Status Narrative Persistent AF/ AFL - ventricular rates elevated s/p permanent pacemaker ( [employer]) / Pacemaker nearing end of service CHF, chronic Assessment/Plan Pt to remain off warfarin, in preparation for pacemaker gen replacement on Saturday Start lovenox bid as inr subtherapeutic Will inc amiodarone and continue metoprolol for rate control in AF. ? KARL/ cardioversion at time of pacemaker procedure. Will d/w Dr. Charlton Subjective ROS Limited/Unobtainable: No Subjective Cardiology for Dr. Charlton Pt with no c/o pain, dyspnea. Objective Last 24 Hour Vital Signs Date Time Temp Pulse Resp B/P (MAP) Pulse Ox O2 Delivery O2 Flow Rate FiO2 11/16/17 12:00 98.1 105 21 127/79 97 Nasal Cannula 98.1 11/16/17 08:48 97.9 113 21 134/72 96 Nasal Cannula 97.9 11/16/17 08:30 113 134/72 11/16/17 08:29 113 134/72 11/16/17 08:28 134/72 11/16/17 08:00 117 11/16/17 07:38 Nasal Cannula 2.0 28 11/16/17 07:38 98 Nasal Cannula 2.0 28 11/16/17 04:00 115 11/16/17 04:00 98.0 88 19 130/71 96 Nasal Cannula 3.0 98.0 11/16/17 00:00 96.9 98 22 124/79 94 Nasal Cannula 3.0 96.9 11/16/17 00:00 108 11/15/17 23:28 133/81 11/15/17 20:00 98.1 100 20 133/81 94 Nasal Cannula 3.0 98.1 11/15/17 20:00 108 11/15/17 18:17 121/75 11/15/17 16:00 112 11/15/17 16:00 97.8 93 19 121/75 97 Nasal Cannula 3.0 97.8 General Appearance: WD/WN, no apparent distress, alert, obese EENT: PERRL/EOMI Neck: no JVD Rhythm: Afib Cardiovascular: regular rhythm, no gallop/murmur, tachycardia Respiratory/Chest: lungs clear Abdomen: non tender, soft Extremities: no swelling Intake and Output 11/15/17 11/16/17 19:00 07:00 Intake Total 720 ml Output Total 300 ml Balance 720 ml -300 ml Intake Oral 720 ml Output Urine Total 300 ml # Voids 4 # Bowel Movements 1 Laboratory Tests Test 11/16/17 07:33 Prothrombin Time 15.9 SEC (9.30-11.50) H Prothromb Time International Ratio 1.5 (0.9-1.1) H ANDRZEJ HERNANDEZ Nov 16, 2017 14:37
[2017-11-16 15:08] LABS: ANION GAP 6 mmol/L (5-15); BLOOD UREA NITROGEN 54 mg/dL (7-18); CALCIUM 9.4 MG/DL (8.5-10.1); CARBON DIOXIDE 31 MMOL/L (21-32); CHLORIDE 104 MMOL/L (98-107); CREATININE 1.9 MG/DL (0.55-1.30); POTASSIUM 4.1 MMOL/L (3.5-5.1); SODIUM 141 MMOL/L (136-145)
[2017-11-16 16:00] VITALS: BP 132/86
[2017-11-16] MEDS: Amiodarone 200mg tab ORAL SCH (17:25)
[2017-11-16 20:00] VITALS: BP 127/72
[2017-11-16] MEDS: Levemir Flexpen SUBQ SCH (21:10)
[2017-11-16] MEDS: Enoxaparin 80mg Inj SUBQ SCH (21:12)
[2017-11-17] VITALS (8 sets, daily range): BP systolic 102–131; BP diastolic 60–79
[2017-11-17] MEDS: Levothyroxine 25mcg tab ORAL SCH (06:19)
[2017-11-17 08:23] LABS: BASOPHILS % (AUTO) 1.3 % (0.0-2.0); EOSINOPHILS % (AUTO) 2.6 % (0.0-3.0); HEMATOCRIT 37.5 % (37.0-47.0); HEMOGLOBIN 12.9 G/DL (12.0-16.0); LYMPHOCYTES % (AUTO) 23.7 % (20.0-45.0); MEAN CORPUSCULAR VOLUME 95 FL (80-99); NEUTROPHILS % (AUTO) 63.4 % (45.0-75.0); PLATELET COUNT 306 K/UL (150-450); RED BLOOD COUNT 3.95 M/UL (4.20-5.40); WHITE BLOOD COUNT 9.9 K/UL (4.8-10.8)
[2017-11-17 08:27] LABS: INR 1.3 (0.9-1.1)
[2017-11-17] MEDS: Lactulose 20gm/30ml UDC ORAL SCH ×3 (08:28→17:07)
[2017-11-17] MEDS: Phenytoin 100mg cap ORAL SCH ×2 (08:29→20:40)
[2017-11-17] MEDS: Metoprolol Succinate XL 100mg tab ORAL SCH (08:30)
[2017-11-17] MEDS: Amiodarone 200mg tab ORAL SCH ×3 (08:30→17:11)
[2017-11-17] MEDS: Irbesartan 150mg tablet ORAL SCH ×2 (08:31→17:07)
[2017-11-17] MEDS: Enoxaparin 80mg Inj SUBQ SCH (08:37)
[2017-11-17 09:10] LABS: ANION GAP 12 mmol/L (5-15); BLOOD UREA NITROGEN 61 mg/dL (7-18); CARBON DIOXIDE 23 MMOL/L (21-32); CHLORIDE 105 MMOL/L (98-107); CREATININE 1.9 MG/DL (0.55-1.30); POTASSIUM 4.5 MMOL/L (3.5-5.1); SODIUM 140 MMOL/L (136-145)
[2017-11-17 10:11] LABS: APPEARANCE,URINE SLIGHTLY CLOUDY; BILIRUBIN, URINE NEGATIVE (NEGATIVE); GLUCOSE, URINE (UA) NEGATIVE (NEGATIVE); KETONES,URINE NEGATIVE (NEGATIVE); LEUKOCYTE ESTERASE ,URINE 1+ (NEGATIVE); NITRITE,URINE NEGATIVE (NEGATIVE); PH,URINE 6 (4.5-8.0); PROTEIN,URINE NEGATIVE (NEGATIVE); UROBILINOGEN,URINE NORMAL MG/DL (0.0-1.0)
[2017-11-17 10:16] LABS: COLOR,URINE YELLOW
--- NOTE | 2017-11-17 14:12 | Cardiology Progress Note ---
Assessment/Plan Problem List: (1) Congestive heart failure with left ventricular diastolic dysfunction (2) Presence of permanent cardiac pacemaker (3) Sick sinus syndrome Status: stable, progressing Status Narrative Persistent AF/ AFL - ventricular rates elevated s/p permanent pacemaker ( [employer]) / Pacemaker nearing end of service CHF, chronic diastolic Assessment/Plan Continue lovenox sc bid while pt off warfarin for pacemaker procedure. Continue lasix - change to po, as pt developing prerenal azotemia and i/os negative appx 3L, wt down Amiodarone has been increased, and pt on high dose metoprolol for rate control ? KARL/cardioversion at time of pacemaker procedure. Will d/w Dr. Charlton Subjective ROS Limited/Unobtainable: No Subjective Cardiology for Dr. Charlton Pt comfortable, no respiratory distress. Objective Last 24 Hour Vital Signs Date Time Temp Pulse Resp B/P (MAP) Pulse Ox O2 Delivery O2 Flow Rate FiO2 11/17/17 12:00 107 11/17/17 12:00 97.0 121 20 115/79 97 Nasal Cannula 97.0 11/17/17 08:33 123 112/64 11/17/17 08:31 112/64 11/17/17 08:30 123 112/64 11/17/17 08:24 97.5 123 18 112/64 95 Nasal Cannula 97.5 11/17/17 08:00 122 11/17/17 04:00 120 11/17/17 04:00 97.4 121 21 112/73 93 Nasal Cannula 2.0 97.4 11/17/17 00:00 121 11/17/17 00:00 97.6 92 19 131/69 96 Nasal Cannula 97.6 11/16/17 20:00 115 11/16/17 20:00 97.4 118 23 127/72 97 Nasal Cannula 97.4 11/16/17 19:03 97 Nasal Cannula 2.0 28 11/16/17 19:03 Nasal Cannula 2.0 28 11/16/17 17:25 132/86 11/16/17 16:00 109 11/16/17 16:00 97.7 86 20 132/86 100 Nasal Cannula 97.7 General Appearance: WD/WN, no apparent distress, alert EENT: PERRL/EOMI Neck: supple, no JVD Rhythm: Afib Cardiovascular: tachycardia, irregularly irregular Respiratory/Chest: other - dec BS lower harman ( poor cooperation w/ deep inspir effort) Abdomen: non tender, soft Extremities: no swelling Intake and Output 11/16/17 11/17/17 19:00 07:00 Intake Total 400 ml Output Total 900 ml 2400 ml Balance -500 ml -2400 ml Other 400 ml Output Urine Total 900 ml 2400 ml # Voids 3 # Bowel Movements 1 Laboratory Tests Test 11/17/17 07:45 11/17/17 08:05 White Blood Count 9.9 K/UL (4.8-10.8) Red Blood Count 3.95 M/UL (4.20-5.40) L Hemoglobin 12.9 G/DL (12.0-16.0) Hematocrit 37.5 % (37.0-47.0) Mean Corpuscular Volume 95 FL (80-99) Mean Corpuscular Hemoglobin 32.6 PG (27.0-31.0) H Mean Corpuscular Hemoglobin Concent 34.4 G/DL (32.0-36.0) Red Cell Distribution Width 13.0 % (11.6-14.8) Platelet Count 306 K/UL (150-450) Mean Platelet Volume 8.3 FL (6.5-10.1) Neutrophils (%) (Auto) 63.4 % (45.0-75.0) Lymphocytes (%) (Auto) 23.7 % (20.0-45.0) Monocytes (%) (Auto) 9.0 % (1.0-10.0) Eosinophils (%) (Auto) 2.6 % (0.0-3.0) Basophils (%) (Auto) 1.3 % (0.0-2.0) Prothrombin Time 13.5 SEC (9.30-11.50) H Prothromb Time International Ratio 1.3 (0.9-1.1) H Sodium Level 140 MMOL/L (136-145) Potassium Level 4.5 MMOL/L (3.5-5.1) Chloride Level 105 MMOL/L (98-107) Carbon Dioxide Level 23 MMOL/L (21-32) Anion Gap 12 mmol/L (5-15) Blood Urea Nitrogen 61 mg/dL (7-18) H Creatinine 1.9 MG/DL (0.55-1.30) H Estimat Glomerular Filtration Rate mL/min (>60) Glucose Level 135 MG/DL (74-106) H Calcium Level 9.0 MG/DL (8.5-10.1) Urine Color Yellow Urine Appearance Slightly cloudy Urine pH 6 (4.5-8.0) Urine Specific [place] 1.015 (1.005-1.035) Urine Protein Negative (NEGATIVE) Urine Glucose (UA) Negative (NEGATIVE) Urine Ketones Negative (NEGATIVE) Urine Occult Blood Negative (NEGATIVE) Urine Nitrite Negative (NEGATIVE) Urine Bilirubin Negative (NEGATIVE) Urine Urobilinogen Normal MG/DL (0.0-1.0) Urine Leukocyte Esterase 1+ (NEGATIVE) H Urine RBC 0-2 /HPF (0 - 2) Urine WBC 5-10 /HPF (0 - 2) H Urine Squamous Epithelial Cells Many /LPF (NONE/OCC) H Urine Bacteria Few /HPF (NONE) ANDRZEJ HERNANDEZ Nov 17, 2017 14:12
[2017-11-17] MEDS ORDERED: ceFAZolin sod 1 GM in NS 55 ML IVPB ONE (18:00)
[2017-11-17] MEDS: Levemir Flexpen SUBQ SCH (20:41)
[2017-11-18] VITALS (11 sets, daily range): BP systolic 119–147; BP diastolic 42–92
[2017-11-18] MEDS ORDERED: ceFAZolin sod 1 GM in NS 55 ML IVPB ONE (06:00)
[2017-11-18] MEDS: Levothyroxine 25mcg tab ORAL SCH (06:04)
[2017-11-18] MEDS ORDERED: DiphenhydrAMINE 50mg/ml Inj IVP PRN (06:30)
[2017-11-18] MEDS ORDERED: Midazolam 2mg/2ml Inj IVP PRN (06:30)
[2017-11-18] MEDS ORDERED: Atropine Inj 1mg/10ml Syr IV PRN (06:30)
[2017-11-18] MEDS ORDERED: fentaNYL 100 mcg/2 mL IV PRN (06:30)
--- NOTE | 2017-11-18 07:10 | Anethesia Preoperative Eval ---
Anesthesia Pre-op PMH/ROS General Date of Evaluation: Nov 18, 2017 Time of Evaluation: 07:03 Anesthesiologist: werner ASA Score: ASA 4 Mallampati Score Class I : Soft palate, uvula, fauces, pillars visible Class II: Soft palate, uvula, fauces visible Class III: Soft palate, base of uvula visible Class IV: Only hard plate visible Mallampati Classification: Class II Surgeon: janay Diagnosis: pacemaker battery elective replacement indicaor activated Surgical Procedure: paemaker generator replacement Anesthesia History: none Social History: smoking - nonsmoker Family History: no anesthesia problems Allergies: Coded Allergies: No Known Allergies (Verified , 12/03/08) Medications: see eMAR Past Medical History Cardiovascular: Reports: HTN, arrhythmia, other - pacemaker, chf Neurologic/Psychiatric: Reports: CVA, other - nonverbal, seizure disorder Endocrine: Reports: DM, hypothyroidism Hematology/Immune: Reports: other - coagulopathy Other: obesity Anesthesia Pre-op Phys. Exam Physician Exam Last Vital Signs Date Time Temp Pulse Resp B/P (MAP) Pulse Ox O2 Delivery O2 Flow Rate FiO2 11/18/17 04:00 100 11/18/17 04:00 98.1 17 123/42 97 Nasal Cannula 2.0 98.1 11/17/17 19:00 28 Constitutional: NAD Neurologic: other - nonverbal Cardiovascular: other - arrhythmia Respiratory: CTA Gastrointestinal: S/NT/ND Airway Exam Mallampati Score: Class II MO: full Neck: short TMD: 2fb ROM: limited Teeth: missing Anesthesia Pre-op A/P Labs Hematology Test 11/17/17 07:45 White Blood Count 9.9 K/UL (4.8-10.8) Red Blood Count 3.95 M/UL (4.20-5.40) L Hemoglobin 12.9 G/DL (12.0-16.0) Hematocrit 37.5 % (37.0-47.0) Mean Corpuscular Volume 95 FL (80-99) Mean Corpuscular Hemoglobin 32.6 PG (27.0-31.0) H Mean Corpuscular Hemoglobin Concent 34.4 G/DL (32.0-36.0) Red Cell Distribution Width 13.0 % (11.6-14.8) Platelet Count 306 K/UL (150-450) Mean Platelet Volume 8.3 FL (6.5-10.1) Neutrophils (%) (Auto) 63.4 % (45.0-75.0) Lymphocytes (%) (Auto) 23.7 % (20.0-45.0) Monocytes (%) (Auto) 9.0 % (1.0-10.0) Eosinophils (%) (Auto) 2.6 % (0.0-3.0) Basophils (%) (Auto) 1.3 % (0.0-2.0) Coagulation Test 11/17/17 07:45 Prothrombin Time 13.5 SEC (9.30-11.50) H Prothromb Time International Ratio 1.3 (0.9-1.1) H Chemistry Test 11/17/17 07:45 Sodium Level 140 MMOL/L (136-145) Potassium Level 4.5 MMOL/L (3.5-5.1) Chloride Level 105 MMOL/L (98-107) Carbon Dioxide Level 23 MMOL/L (21-32) Anion Gap 12 mmol/L (5-15) Blood Urea Nitrogen 61 mg/dL (7-18) H Creatinine 1.9 MG/DL (0.55-1.30) H Estimat Glomerular Filtration Rate mL/min (>60) Glucose Level 135 MG/DL (74-106) H Calcium Level 9.0 MG/DL (8.5-10.1) Accucheck 152 Studies Pre-op Studies: EKG - wide QRS complex, lafb Risk Assessment & Plan Assessment: [email or web address] Plan: general Status Change Before Surgery: No Pre-Antibiotics Drug: ancef 1gm Time Given: 07:45 ELAINE KAY Nov 18, 2017 07:10
[2017-11-18] MEDS ORDERED: Bupivacaine 0.25% Inj 30ml INJ ONE (07:11)
[2017-11-18] MEDS ORDERED: Propofol 200mg/20ml IV ONE (07:30)
[2017-11-18] MEDS ORDERED: Lidocaine 1% MPF 10mg/ml 5ml ONE (07:30)
[2017-11-18] MEDS ORDERED: NS Irrig 1000ml ONE (07:30)
[2017-11-18] MEDS ORDERED: fentaNYL 100 mcg/2 mL IV ONE (07:30)
[2017-11-18] MEDS ORDERED: Sterile Water Irrig 1000ml IRRIG ONE (07:30)
[2017-11-18] MEDS ORDERED: Lidocaine 1% Plain 30 ml INJ ONE (07:35)
--- NOTE | 2017-11-18 07:36 | Pre-Procedure Note/Attestation ---
Pre-Procedure Note/Attestation Attestation I attest that I discussed the nature of the procedure; its benefits; risks and complications; and alternatives (and the risks and benefits of such alternatives ), prior to the procedure, with the patient (or the patient's legal used equipment sales representative). I attest that, if there was a reasonable possibility of needing a blood transfusion, the patient (or the patient's legal used equipment sales representative) was given the [facility] Services standardized written summary, pursuant to the [place] Blood Safety Act ([place] Health and Safety Code # 1645, as amended). I attest that I re-evaluated the patient just prior to the surgery and that there has been no change in the patient's H&P, except as documented below: BRITTANY SEAY Nov 18, 2017 07:36
[2017-11-18] MEDS: Furosemide 40mg tab ORAL SCH (09:00)
[2017-11-18] MEDS: Metoprolol Succinate XL 100mg tab ORAL SCH ×2 (09:00→20:45)
[2017-11-18] MEDS: Lactulose 20gm/30ml UDC ORAL SCH ×3 (09:00→17:32)
[2017-11-18] MEDS: Irbesartan 150mg tablet ORAL SCH ×2 (09:00→17:32)
[2017-11-18] MEDS: Amiodarone 200mg tab ORAL SCH ×3 (09:00→17:32)
[2017-11-18] MEDS: Phenytoin 100mg cap ORAL SCH ×2 (09:00→20:46)
--- NOTE | 2017-11-18 09:12 | Operative Note - PDOC ---
Operative Note Operative Note Post-op Diagnosis: same as pre-op Anesthesia: general Specimen: yes Complications: none Condition: stable Estimated Blood Loss: none Drains: none Implant(s) used?: Yes Indications for Procedure pacemaker DENISE Description of Procedure incision was made over the device and device was expalnted. Leads were interrogated. new generator was connected to device and placed in the pocked. Pocket was closed BRITTANY SEAY Nov 18, 2017 09:12
--- NOTE | 2017-11-18 09:16 | Operative Note - PDOC ---
Operative Note Operative Note Post-op Diagnosis: same as pre-op Anesthesia: general Specimen: yes Complications: none Condition: stable Estimated Blood Loss: none Drains: none Implant(s) used?: Yes Description of Procedure [id number] BRITTANY SEAY Nov 18, 2017 09:16
--- NOTE | 2017-11-18 09:41 | Immediate Post-Op Evaluation ---
Immediate Post-Op Evalulation Immediate Post-Op Evalulation Procedure: pacemaaker generator replacement Date of Evaluation: Nov 18, 2017 Time of Evaluation: 09:24 IV Fluids: 350ml 0.9ns Blood Products: none Estimated Blood Loss: negligible Blood Pressure Systolic: 137 Blood Pressure Diastolic: 86 Pulse Rate: 100 Respiratory Rate: 18 O2 Sat by Pulse Oximetry: 98 Temperature (Fahrenheit): 97.6 Pain Score (1-10): 0 Nausea: No Vomiting: No Complications none Patient Status: awake, reacts, patent Hydration Status: adequate Drug: ancef 1gm Given Within 1 Hr of Incision: Yes Time Given: 07:45 ELAINE KAY Nov 18, 2017 09:41
--- NOTE | 2017-11-18 09:43 | 48 Hour Post Anesthesia Eval ---
Post Anesthesia Evaluation Procedure: pacemaaker generator replacement Date of Evaluation: Nov 18, 2017 Time of Evaluation: 09:42 Blood Pressure Systolic: 140 0: 87 Pulse Rate: 92 Respiratory Rate: 12 Temperature (Fahrenheit): 97.6 O2 Sat by Pulse Oximetry: 98 Airway: patent Nausea: No Vomiting: No Pain Intensity: 0 Hydration Status: adequate Cardiopulmonary Status: stable Mental Status/LOC: patient returned to baseline Post-Anesthesia Complications: none Follow-up care needed: N/A ELAINE KAY Nov 18, 2017 09:43
[2017-11-18 13:48] LABS: INR 1.1 (0.9-1.1)
[2017-11-18 13:56] LABS: ANION GAP 9 mmol/L (5-15); BLOOD UREA NITROGEN 67 mg/dL (7-18); CALCIUM 8.9 MG/DL (8.5-10.1); CARBON DIOXIDE 25 MMOL/L (21-32); CHLORIDE 108 MMOL/L (98-107); CREATININE 1.9 MG/DL (0.55-1.30); POTASSIUM 4.5 MMOL/L (3.5-5.1); SODIUM 142 MMOL/L (136-145)
[2017-11-18] MEDS ORDERED: Nitrofurantoin Macrocrystal 50mg cap ORAL ONE (16:00)
[2017-11-18] MEDS ORDERED: Warfarin Sodium 2.5mg ORAL ONE (17:00)
--- NOTE | 2017-11-18 18:45 | Procedure Note ---
DATE OF PROCEDURE: 11/18/2017 SURGEON: Kg Charlton M.D. The explanted pacemaker was [employer], model 5826 and serial number [id number], implant date 01/25/2009. Chronic right atrial lead is [employer], model number 433-03/45, serial number [id number], implanted on 12/13/1997. The ventricular lead is [employer], model RU52TV and serial number [id number]. New generator is [employer], model NN4514 and serial number [id number]. MEASURED PARAMETERS: Right atrium sensing 2.7 millivolts, pacing threshold was not checked because the patient is in atrial fibrillation, impedance 373. The right ventricular R-wave measured 12, impedance 265 and threshold 1.9 at 0.4 milliseconds. These setup parameters are DDD 70/100. Lillian Charlton M.D. DR: PIA JOB#: [id number] CC:
[2017-11-18] MEDS: Levemir Flexpen SUBQ SCH (20:48)
[2017-11-18] MEDS ORDERED: Digoxin 0.5mg/2ml Inj IVP ONE (22:30)
--- NOTE | 2017-11-18 22:33 | Cardiology Progress Note ---
Assessment/Plan Assessment/Plan congestive heart failure, acute, clinically improved, diastolic change lasix to oral Paroxysmal a fib, on amiodarone, restarted Coumadin tonight monitor K daily Mg was normal her Hb A1C is pending will attempt to get her OOB constipation, will give suppository and laxatives pacemaker generator repllacement done Subjective Subjective post cardioversion confused but alert Objective Last 24 Hour Vital Signs Date Time Temp Pulse Resp B/P (MAP) Pulse Ox O2 Delivery O2 Flow Rate FiO2 11/18/17 20:45 99 139/86 11/18/17 20:00 97.9 99 19 139/86 97 Nasal Cannula 2.0 97.9 11/18/17 20:00 108 11/18/17 17:32 119/65 11/18/17 16:00 83 11/18/17 16:00 97.3 92 19 119/65 95 Nasal Cannula 3.0 97.3 11/18/17 12:00 97.0 90 20 120/73 96 97.0 11/18/17 12:00 87 11/18/17 10:00 97.8 91 15 135/85 97 Nasal Cannula 3.0 97.8 11/18/17 09:45 98 24 134/85 99 Nasal Cannula 3.0 11/18/17 09:43 207.7 92 12 98 11/18/17 09:41 207.7 100 18 98 11/18/17 09:35 92 12 140/87 99 Nasal Cannula 3.0 11/18/17 09:22 92 21 137/83 99 Simple Mask 6.0 11/18/17 09:17 99 18 146/75 99 Simple Mask 6.0 11/18/17 09:12 97.4 105 18 147/92 99 Simple Mask 6.0 97.4 11/18/17 04:00 100 11/18/17 04:00 98.1 98 17 123/42 97 Nasal Cannula 2.0 98.1 11/18/17 00:00 100 11/18/17 00:00 97.0 110 22 124/69 99 Nasal Cannula 2.0 97.0 General Appearance: no apparent distress EENT: PERRL/EOMI Neck: JVD Rhythm: Afib Cardiovascular: tachycardia Respiratory/Chest: crackles/rales Abdomen: soft Extremities: no swelling Intake and Output 11/17/17 11/18/17 19:00 07:00 Intake Total 360 ml Balance 360 ml Intake Oral 360 ml # Voids 2 2 # Bowel Movements 1 Laboratory Tests Test 11/18/17 13:25 Prothrombin Time 12.0 SEC (9.30-11.50) H Prothromb Time International Ratio 1.1 (0.9-1.1) Sodium Level 142 MMOL/L (136-145) Potassium Level 4.5 MMOL/L (3.5-5.1) Chloride Level 108 MMOL/L (98-107) H Carbon Dioxide Level 25 MMOL/L (21-32) Anion Gap 9 mmol/L (5-15) Blood Urea Nitrogen 67 mg/dL (7-18) H Creatinine 1.9 MG/DL (0.55-1.30) H Estimat Glomerular Filtration Rate mL/min (>60) Glucose Level 139 MG/DL (74-106) H Calcium Level 8.9 MG/DL (8.5-10.1) BRITTANY SEAY Nov 18, 2017 22:33
[2017-11-19] VITALS: BP 138/82
[2017-11-19 04:00] VITALS: BP 135/98
[2017-11-19] MEDS: Levothyroxine 25mcg tab ORAL SCH (06:48)
--- NOTE | 2017-11-19 07:00 | 48 Hour Post Anesthesia Eval ---
Post Anesthesia Evaluation Procedure: pacemaaker generator replacement Date of Evaluation: Nov 19, 2017 Time of Evaluation: 06:45 Blood Pressure Systolic: 135 0: 98 Pulse Rate: 87 Respiratory Rate: 20 Temperature (Fahrenheit): 97.8 O2 Sat by Pulse Oximetry: 98 Airway: patent Nausea: No Vomiting: No Hydration Status: adequate Cardiopulmonary Status: Stable Mental Status/LOC: patient returned to baseline Follow-up Care/Observations: As per surgery Post-Anesthesia Complications: No anesthetic complication Follow-up care needed: N/A BERNARDO BELL M.D. Nov 19, 2017 06:59
[2017-11-19 07:15] LABS: EOSINOPHILS % (AUTO) 2.6 % (0.0-3.0); HEMATOCRIT 35.9 % (37.0-47.0); HEMOGLOBIN 12.1 G/DL (12.0-16.0); LYMPHOCYTES % (AUTO) 16.5 % (20.0-45.0); MEAN CORPUSCULAR VOLUME 95 FL (80-99); MONOCYTES % (AUTO) 8.3 % (1.0-10.0); NEUTROPHILS % (AUTO) 71.6 % (45.0-75.0); PLATELET COUNT 272 K/UL (150-450); RED BLOOD COUNT 3.77 M/UL (4.20-5.40); RED CELL DISTRIBUTION WIDTH 12.6 % (11.6-14.8); WHITE BLOOD COUNT 8.2 K/UL (4.8-10.8)
[2017-11-19 07:32] LABS: ANION GAP 9 mmol/L (5-15); BLOOD UREA NITROGEN 51 mg/dL (7-18); CALCIUM 8.8 MG/DL (8.5-10.1); CARBON DIOXIDE 24 MMOL/L (21-32); CHLORIDE 107 MMOL/L (98-107); CREATININE 1.6 MG/DL (0.55-1.30); POTASSIUM 4.1 MMOL/L (3.5-5.1); SODIUM 140 MMOL/L (136-145)
[2017-11-19 07:41] LABS: INR 1.1 (0.9-1.1)
[2017-11-19 08:00] VITALS: BP 124/69
[2017-11-19] MEDS: Amiodarone 200mg tab ORAL SCH ×3 (08:54→17:07)
[2017-11-19] MEDS: Metoprolol Succinate XL 100mg tab ORAL SCH ×2 (08:54→21:19)
[2017-11-19] MEDS: Furosemide 40mg tab ORAL SCH (08:55)
[2017-11-19] MEDS: Phenytoin 100mg cap ORAL SCH ×2 (08:55→21:18)
[2017-11-19] MEDS: Lactulose 20gm/30ml UDC ORAL SCH ×3 (08:55→17:08)
[2017-11-19] MEDS: Irbesartan 150mg tablet ORAL SCH ×2 (08:55→17:08)
[2017-11-19 12:00] VITALS: BP 121/68
[2017-11-19 16:00] VITALS: BP 125/72
[2017-11-19] MEDS ORDERED: Warfarin Sodium 5mg ORAL ONE (17:00)
--- NOTE | 2017-11-19 18:04 | Cardiology Progress Note ---
Assessment/Plan Assessment/Plan congestive heart failure, acute, clinically improved, diastolic change lasix to oral Paroxysmal a fib, on amiodarone, restarted Coumadin tonight plan to perform KARL cardioversion monitor K daily Mg was normal her Hb A1C is pending will attempt to get her OOB constipation, will give suppository and laxatives pacemaker generator repllacement done Subjective Subjective patient is eating dinner, feels OK, daughter at the bedside patient is non verbal Objective Last 24 Hour Vital Signs Date Time Temp Pulse Resp B/P (MAP) Pulse Ox O2 Delivery O2 Flow Rate FiO2 11/19/17 17:08 125/72 11/19/17 16:00 94 11/19/17 16:00 96.8 91 20 125/72 95 Room Air 96.8 11/19/17 12:00 88 11/19/17 12:00 96.9 90 20 121/68 98 Nasal Cannula 2.0 96.9 11/19/17 08:55 90 124/69 11/19/17 08:55 124/69 11/19/17 08:54 90 124/69 11/19/17 08:00 92 11/19/17 08:00 96.9 90 20 124/69 98 Nasal Cannula 2.0 96.9 11/19/17 07:54 Nasal Cannula 2.0 28 11/19/17 07:54 95 Nasal Cannula 2.0 28 11/19/17 07:00 208.0 87 20 98 11/19/17 04:00 89 11/19/17 04:00 97.8 87 20 135/98 98 Nasal Cannula 2.0 97.8 11/19/17 00:00 90 11/19/17 00:00 97.2 98 19 138/82 97 Nasal Cannula 2.0 97.2 11/18/17 22:47 93 11/18/17 20:45 99 139/86 11/18/17 20:00 97.9 99 19 139/86 97 Nasal Cannula 2.0 97.9 11/18/17 20:00 108 11/18/17 19:03 Nasal Cannula 2.0 28 11/18/17 19:03 94 Nasal Cannula 2.0 28 General Appearance: no apparent distress EENT: PERRL/EOMI Neck: JVD Rhythm: Afib Cardiovascular: tachycardia Respiratory/Chest: crackles/rales Abdomen: non tender Intake and Output 11/18/17 11/19/17 19:00 07:00 Intake Total 582 ml 120 ml Output Total 300 ml Balance 582 ml -180 ml Intake Oral 232 ml 120 ml IV Total 350 ml Output Urine Total 300 ml Laboratory Tests Test 11/19/17 06:55 White Blood Count 8.2 K/UL (4.8-10.8) Red Blood Count 3.77 M/UL (4.20-5.40) L Hemoglobin 12.1 G/DL (12.0-16.0) Hematocrit 35.9 % (37.0-47.0) L Mean Corpuscular Volume 95 FL (80-99) Mean Corpuscular Hemoglobin 32.0 PG (27.0-31.0) H Mean Corpuscular Hemoglobin Concent 33.6 G/DL (32.0-36.0) Red Cell Distribution Width 12.6 % (11.6-14.8) Platelet Count 272 K/UL (150-450) Mean Platelet Volume 8.4 FL (6.5-10.1) Neutrophils (%) (Auto) 71.6 % (45.0-75.0) Lymphocytes (%) (Auto) 16.5 % (20.0-45.0) L Monocytes (%) (Auto) 8.3 % (1.0-10.0) Eosinophils (%) (Auto) 2.6 % (0.0-3.0) Basophils (%) (Auto) 1.0 % (0.0-2.0) Prothrombin Time 11.4 SEC (9.30-11.50) Prothromb Time International Ratio 1.1 (0.9-1.1) Sodium Level 140 MMOL/L (136-145) Potassium Level 4.1 MMOL/L (3.5-5.1) Chloride Level 107 MMOL/L (98-107) Carbon Dioxide Level 24 MMOL/L (21-32) Anion Gap 9 mmol/L (5-15) Blood Urea Nitrogen 51 mg/dL (7-18) H Creatinine 1.6 MG/DL (0.55-1.30) H Estimat Glomerular Filtration Rate mL/min (>60) Glucose Level 110 MG/DL (74-106) H Calcium Level 8.8 MG/DL (8.5-10.1) BRITTANY SEAY 13, 2018 18:04
[2017-11-19 20:00] VITALS: BP 111/57
[2017-11-19] MEDS: Enoxaparin 80mg Inj SUBQ SCH ×2 (21:20→21:49)
[2017-11-19] MEDS: Levemir Flexpen SUBQ SCH (21:22)
[2017-11-20] VITALS: BP 127/66
[2017-11-20 04:00] VITALS: BP 130/71
[2017-11-20] MEDS: Levothyroxine 25mcg tab ORAL SCH (06:42)
[2017-11-20 08:00] VITALS: BP 131/74
[2017-11-20 08:18] LABS: INR 1.1 (0.9-1.1)
[2017-11-20] MEDS: Lactulose 20gm/30ml UDC ORAL SCH ×3 (09:38→17:56)
[2017-11-20] MEDS: Phenytoin 100mg cap ORAL SCH (09:38)
[2017-11-20] MEDS: Amiodarone 200mg tab ORAL SCH ×3 (09:39→17:54)
[2017-11-20] MEDS: Irbesartan 150mg tablet ORAL SCH ×2 (09:39→17:56)
[2017-11-20] MEDS: Furosemide 40mg tab ORAL SCH (09:40)
[2017-11-20] MEDS: Metoprolol Succinate XL 100mg tab ORAL SCH (09:41)
[2017-11-20 12:00] VITALS: BP 114/66
[2017-11-20 16:00] VITALS: BP 109/50
[2017-11-20] MEDS ORDERED: Warfarin Sodium 5mg ORAL ONE (17:00)
[2017-11-20 17:56] VITALS: BP 135/69
--- NOTE | 2017-11-22 12:16 | Discharge Summary ---
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
--- NOTE | 2017-11-23 01:00 | Discharge Summary 2 SIG ---
DATE OF ADMISSION: 11/11/2017 DATE OF DISCHARGE: 11/20/2017 BRIEF HOSPITAL COURSE: The patient is an 82-year-old female, who is demented and has poor healing, according to daughter had atrial fibrillation and rate was elevated, but then she converted back to a paced rhythm. For the past three days she was breathing heavily. O2 saturation dropping to 86%. She has medical history significant for CHF with diastolic dysfunction and paroxysmal atrial fibrillation. She has a pacemaker in situ. She has a history of hemorrhagic stroke at age 42 and also had ischemic stroke at age 72 and since then has been anticoagulated with Coumadin. The patient also has severe hypertension, diabetes, dementia, recurrent urinary tract infection, and anemia. The patient was taken by EMS to [facility] where she was given two nitroglycerins by supervisor shed workers. On evaluation at ED, BNP was 1099. Her troponin was 0.286. There was no leukocytosis. Urinalysis was negative. She had an EKG done that showed a paced rhythm. Chest x-ray showed cardiomegaly and mild interstitial edema. She was then admitted to telemetry for acute CHF exacerbation and paroxysmal atrial fibrillation. She was given diuresis and beta-lisette. The patient is on irbesartan, Procardia, and metoprolol. She was given daily IV Lasix. Echocardiogram done in 12/2016 showed EF of 48% with global hypokinesis. On telemetry, the patient had AV sequential pacing. She was continued on amiodarone and anticoagulation with Coumadin. She had subtherapeutic INR, INR goal 2.0 to 2.5. Lasix was increased to 40 mg IV push b.i.d. Pacemaker interrogation was done. The patient has [employer] and pacemaker nearing [id number]. She was taken off warfarin and was placed on Lovenox b.i.d. for anticipation of surgery. Lasix was eventually transitioned to p.o. as renal function was increasing. On 11/18/2017, she underwent pacemaker generator replacement. The patient tolerated procedure well. She was restarted on Coumadin. She was eventually discharged home. FINAL DIAGNOSES: 1. Acute on chronic diastolic congestive heart failure. 2. Paroxysmal atrial fibrillation. 3. Status post pacemaker generator replacement. 4. Vascular dementia with multiple strokes. 5. Pacemaker in situ. 6. Anticoagulation with Coumadin. 7. Severe hypertensive heart disease. DISPOSITION: The patient was discharged home. DISCHARGE INSTRUCTIONS: Follow up with Dr. Charlton within a week. No heavy lifting. No raising on the left arm over past shoulder. Keep incision site clean and dry. Lillian Charlton M.D. I have been assigned to dictate discharge summary on this account and I was not involved in the patient's management. Yoly Maurice N.P. DR: SALOMON JOB#: [id number] CC: JAMES
== END 2017-11-20 18:49 | disposition home or self-care (01) | DRG 259 ==
LOC: EDBD 15:33 → EMR 15:35 → EDBEDREQ 16:05 → 2E 16:37 → EDBEDREQ 18:33 → EMR 19:55 → 2E 21:02
PROC: 0JPT0PZ Removal of Cardiac Rhythm Related Device from Trunk Subcutaneous Tissue and Fascia, Open Approach (ICD-10-PCS; principal; 2017-11-18 07:30)
PROC: 0JH606Z Insertion of Pacemaker, Dual Chamber into Chest Subcutaneous Tissue and Fascia, Open Approach (ICD-10-PCS; principal; 2017-11-18 07:30)
DX: I11.0 Hypertensive heart disease with heart failure (principal); F01.50 Vascular dementia, unspecified severity, without behavioral disturbance, psychotic disturbance, mood disturbance, and anxiety; I48.0 Paroxysmal atrial fibrillation; I50.33 Acute on chronic diastolic (congestive) heart failure; I69.118 Other symptoms and signs involving cognitive functions following nontraumatic intracerebral hemorrhage; K59.00 Constipation, unspecified; E11.9 Type 2 diabetes mellitus without complications; R09.02 Hypoxemia; Z95.0 Presence of cardiac pacemaker; Z79.4 Long term (current) use of insulin; Z79.01 Long term (current) use of anticoagulants
CPT/HCPCS: 36415; 71045; 80048; 80053; 80185; 81001; 81003; 82962; 83036; 83735; 83880; 84443; 84484; 85025; 85610; 93005; 94003; 94150; 94760; 99285; J8499; S5561